=== PATIENT | female | born 1950 | race Hispanic/Latino ===

== ENCOUNTER 2017-03-25 05:48 | Day surgery (SDC) | payer MEDICARE ==
[2017-03-25] MEDS ORDERED: WATER FOR IRRIG STERILE IR ONE (07:16)
--- NOTE | 2017-03-25 07:44 | Anesthesia Consultation ---
Anesthesia Consult and Med Hx Date of service: 03/25/17 - Airway Anesthetic Teeth Evaluation: Good ROM Head & Neck: Adequate Mental/Hyoid Distance: Adequate Mallampati Class: Class II Intubation Access Assessment: Probably Good - Pulmonary Exam CTA: Yes - Cardiac Exam Cardiac Exam: RRR - Pre-Operative Health Status ASA Pre-Surgery Classification: ASA2 Proposed Anesthetic Plan: MAC - Pre-Anesthesia Comment Pre-Anesthesia Comments: lap band 8 years ago with c/o abdominal pain. Tremors, ankle swelling - Cardiovascular System Hx Hypertension: Yes (high cholesterol) - Endocrine Hx Hypothyroidism: Yes - Other Systems Hx Obesity: Yes
[2017-03-25] MEDS ORDERED: XYLOCAINE 1% 20 mL ONE (07:46)
[2017-03-25] MEDS ORDERED: DIPRIVAN 10 MG/ML IV ONE ×2 (07:46)
[2017-03-25] MEDS ORDERED: HURRICAINE ONE 20% TOPICAL SPRAY MM (07:59)
[2017-03-25] MEDS ORDERED: NACL 0.9% 1000 ML 1,000 ML IV SCH (08:00)
[2017-03-25] MEDS ORDERED: ZOFRAN ONE (08:03)
--- NOTE | 2017-03-25 08:25 | Discharge Summary ---
Providers - Providers Attending physician: DMITRY BAKER Primary care physician: JOSE JUAN DOMINGUEZ Hospitalization Condition: Good Procedures: egd Hospital course: 67 y.o. F presented to endoscopy for EGD due to abdominal pain with hx of gastric lap band. She underwent the procedure well. She was discharged home the same day. Disposition: DC-01 TO HOME OR SELFCARE Core Measure Documentation - Palliative Care Palliative Care/ Comfort Measures: Not Applicable - Core Measures Any of the following diagnoses?: none Exam - Physical Exam Narrative exam: no change from previous - Constitutional Vitals: Temp Pulse Resp BP Pulse Ox 97.8 F 76 16 129/81 94 03/25/17 07:33 03/25/17 07:33 03/25/17 07:33 03/25/17 07:33 03/25/17 07:33 Plan Activity: no restrictions Additional Instructions: follow up in Dr. Baker's office. Follow up with: JOSE JUAN DOMINGUEZ MD [Primary Care Provider] - 7 Days
--- NOTE | 2017-03-25 08:32 | Operative Report ---
Operative Report Operative Report: DATE 03/25/17 SURGERY: Upper endoscopy. SURGEON: Dr. Baker ENTRY LEVEL SOFTWARE ENGINEER: Virgil Smith D.O PRE OP DX: hx of gastric band POST OP DX: distal esophagitis, eroded gastric band TYPE OF ANESTHESIA: MAC. ESTIMATED BLOOD LOSS: None. COMPLICATIONS: None. SPECIMENS REMOVED: None. FINDINGS: 1. erosion of approx 75% of the gastric band into the stomach 2. distal esophagitis 3. normal stomach otherwise and duodenum INDICATIONS:INDICATION FOR PROCEDURE: Patient is a 67-year-old female with hx of lap gastric band placement 8years ago. She has been experiencing abdominal pain in the epigastric region. She denies any nausea or vomiting. She had an upper GI at an outside facility one month ago. She states she still has all the fluid in her band. PROCEDURE DETAILS: After consent was reviewed, patient was taken back to the operating room where patient was placed in the left lateral decubitus position and a bite block was placed in the mouth. After a time-out was called, MAC anesthesia was initiated. I then passed the endoscope into her oropharynx, into her esophagus, visualized the entire esophagus, which showed distal esophagitis. As the scope was passed into the distal esophagus a larger pouch was noted above the band. A plack portion of the band was noted upon entry. The scope was retroflexed and 75percent of the band was noted to be eroded into the stomach. The remaining stomach had no abnormalities.I then visualized the first portion of the duodenum and there were no abnormalities I could clearly visualize. I then desufflated the stomach and removed the endoscope. Patient tolerated procedure well and was transferred to recovery room in good and stable condition.
[2017-03-25 08:47] VITALS: BP 112/49
--- NOTE | 2017-03-25 15:05 | Anesthesia Day of Surgery ---
Anesthesia Day of Surgery - Day of Surgery Patient Examined: Yes Patient H&P Reviewed: Yes Patient is NPO: Yes
--- NOTE | 2017-03-25 15:06 | Post Anesthesia Evaluation ---
- Post Anesthesia Evaluation Patient Participated: Yes Airway Patent: Yes Stable Respiratory Function: Yes Nausea/Vomiting: No Temp > 96.8F: Yes Pain Manageable: Yes Adequeate Hydration: Yes Anesthesia Complications: No
== END 2017-03-25 05:49 | disposition home or self-care (01) ==
LOC: GIO 05:48
PROVIDERS: ATTEND Specialist
DX: K21.0 Gastro-esophageal reflux disease with esophagitis (principal); K58.9 Irritable bowel syndrome, unspecified; E78.00 Pure hypercholesterolemia, unspecified; G43.909 Migraine, unspecified, not intractable, without status migrainosus; G47.419 Narcolepsy without cataplexy; E03.9 Hypothyroidism, unspecified; F32.9 Major depressive disorder, single episode, unspecified; Z90.710 Acquired absence of both cervix and uterus; Z90.49 Acquired absence of other specified parts of digestive tract; Z98.890 Other specified postprocedural states; Z87.891 Personal history of nicotine dependence; Z88.8 Allergy status to other drugs, medicaments and biological substances
CPT/HCPCS: 43235; J2405; J2704; J7030